=== PATIENT | male | born 1950 | race Caucasian/White ===

== ENCOUNTER 2016-04-23 09:42 | Emergency (ER) | payer SELFPAY ==
[~2016-04-23] VITALS: Ht 175.3 cm; Wt 86.0 kg
[2016-04-23 09:58] VITALS: BP 100/60
[2016-04-23] MEDS ORDERED: ONDANSETRON 4 MG (ZOFRAN) ORAL DISSOLVE TAB PO ONE (10:20)
[2016-04-23] MEDS ORDERED: KETOROLAC 60 MG/2 ML (TORADOL) VIAL IM ONE (10:20)
[2016-04-23] MEDS ORDERED: ALBUTEROL/IPRATROPIUM 3MG-0.5MG/3ML (DUONEB) NEB VIAL INH ONE (10:20)
[2016-04-23] MEDS ORDERED: SODIUM CHLORIDE FLUSH 10 ML SYR IV PRN (10:25)
[2016-04-23] MEDS ORDERED: ACETAMINOPHEN 500 MG TAB (TYLENOL) PO ONE (10:25)
[2016-04-23] MEDS ORDERED: KETOROLAC 30 MG/ML (TORADOL) 1 ML VIAL IV ONE (10:25)
[2016-04-23 10:55] LABS: MEAN CORPUSCULAR HEMOGLOBIN 30.9 PG (26.0-34.0); MEAN CORPUSCULAR VOLUME 85 FL (80-100); MEAN PLATELET VOLUME 9.9 FL (6.0-9.5); PLATELET COUNT 200 10^3uL (150-450); WHITE BLOOD COUNT 10.53 10^3uL (4.0-11.0)
[2016-04-23 11:05] LABS: BAND NEUTROPHILS % 5 % (0-6); EOSINOPHILS % 0 % (0-4); LYMPHOCYTES # 0.2 #; MEAN CORPUSCULAR HGB CONC 36.5 g/dL (31.0-37.0); MONOCYTES # 0.9 #; MONOCYTES % 9 % (3-11); RBC MORPH NORMAL (NORMAL); SEGMENTED NEUTROPHILS % 84 % (51-67); TOTAL CELLS COUNTED 100
[2016-04-23 11:07] LABS: ALBUMIN 3.8 g/dL (3.4-5.0); ANION GAP 14.2 MEQ/L (3-15); CALCULATED IONIZED CALCIUM 3.8 mg/dL (3.8-4.6); TOTAL PROTEIN 7.8 g/dL (6.4-8.5)
[2016-04-23 11:22] LABS: INFLUENZA VIRUS TYPE A ANTIBOD Negative (NEGATIVE); INFLUENZA VIRUS TYPE B ANTIBOD Negative (NEGATIVE)
== END 2016-04-23 12:05 | disposition home or self-care (01) ==
LOC: ED 09:45
DX: J44.0 Chronic obstructive pulmonary disease with (acute) lower respiratory infection (principal)
CPT/HCPCS: 36415; 71020; 80053; 85025; 86140; 87040; 87502; 94640; 96361; 96374; 99283; J1885; J7030